=== PATIENT | female | born 1965 | race Caucasian/White ===

== ENCOUNTER 2017-04-29 11:30 | Inpatient (IN) | payer MEDICARE, MEDICAID ==
[~2017-04-29] VITALS: Ht 162.6 cm; Wt 47.3 kg
[~2017-04-29 11:30] MED LIST: Anusol Hc,Anuco25 MG R; BACTRIM DS 8001 TA1 PO; CIPRO500 MG PO; DOXYCYCLINE100 M2 PO; FLEXERIL10 MG PO; K-Dur 20MEQ20 MEQ PO; NKHM; PERCOCET 325 MG1 TA2 PO; PROTONIX TR40 MG PO; PROTONIX20 MG PO; PROZAC20 MG PO; PROZAC40 MG PO; VICODIN 5/500 505 MG PO; ZOFRAN ODT4 MG PO
[2017-04-29 11:35] VITALS: BP 155/87
[2017-04-29 12:25] LABS: BASO # 0.1 10*3/uL (0.0-0.1); BASO % 0.7 % (0.0-1.0); EOS % 0.3 % (1.0-4.0); HEMATOCRIT 46.8 % (37.0-47.0); HEMOGLOBIN 16.5 g/dl (12.0-16.0); LYMPH # 1.2 10*3/uL (1.3-4.4); MEAN CELL VOLUME 96.3 fl (81.0-99.0); MEAN CORPUSCULAR HGB CONC 35.3 g/dl (33.0-37.0); MEAN PLATELET VOLUME 9.6 fl (9.6-12.3); MONO # 0.8 10*3/uL (0.1-1.0); MONO % 5.1 % (3.0-9.0); NEUT % 85.4 % (47.0-73.0); PLATELET COUNT AUTOMATED 291 10*3/uL (130-400); RED BLOOD COUNT 4.86 10*6/uL (4.10-5.10); RED CELL DISTRI WIDTH 12.1 % (0-14.5); WHITE BLOOD COUNT 15.2 10*3/uL (4.8-10.8)
[2017-04-29 12:29] LABS: BILIRUBIN NEGATIVE (NEGATIVE); BLOOD NEGATIVE (NEGATIVE); CLARITY SL CLOUDY (CLEAR); COLOR YELLOW (YELLOW); GLUCOSE NEGATIVE (NEGATIVE); KETONE 1+ (NEGATIVE); LEUKO ESTERASE NEGATIVE (NEGATIVE); NITRITE NEGATIVE (NEGATIVE); UROBILINOGEN 0.2 E.U./dl (0.2-1.0)
[2017-04-29 12:34] LABS: ACT PARTIAL THROMBO TIME 20.7 SECONDS (20.8-31.5); INTERNATIONAL NORM RATIO 1.1 (2.0-3.5)
[2017-04-29 12:38] LABS: URINE AMPHETAMINES < 1000 (1000ng/ml); URINE BARBITURATES < 200 (200ng/ml); URINE BENZODIAZEPINES > 200 (200ng/ml); URINE CANNABINOIDS (THC) > 50 (50ng/ml); URINE COCAINE < 300 (300ng/ml); URINE METHADONE < 300 (300ng/ml); URINE OPIATES < 300 (300ng/ml)
[2017-04-29 12:39] LABS: URINE PHENCYCLIDINE < 25 (25ng/ml)
[2017-04-29 12:39] LABS: ALBUMIN 3.9 gm/dl (3.1-4.5); ALKALINE PHOSPHATASE 102 U/L (45-117); BUN 13 mg/dl (7-24); CHLORIDE 104 mmol/L (98-107); CREATININE 0.83 mg/dL (0.55-1.02); LIPASE 129 U/L (73-393); MAGNESIUM 1.7 mg/dL (1.5-2.1); POTASSIUM 3.6 mmol/L (3.5-5.1); SGOT/AST 36 IU/L (3-35); SGPT/ALT 29 U/L (12-78); SODIUM 142 mmol/L (136-145); TOTAL PROTEIN 7.8 gm/dL (6.4-8.2)
[2017-04-29 12:44] LABS: BACTERIA TRACE
[2017-04-29 13:10] VITALS: BP 158/79
--- NOTE | 2017-04-29 13:10 | NUR ---
A 51, admitted to , under the services of NATHAN Ambrose DO with a diagnosis of OPIATE DEPENDENCE. Chief complaint is SUBSTANCE ABUSE WITHDRAWAL. Patient arrived via wheel chair from ER. Monitor applied. Initial assessment completed. Vital signs taken and recorded. NATHAN AMBROSE DO notified of admission to the unit. Orders received. See assessment for past medical history, medications and allergies. Patient and/or family oriented to unit. [facility] visitation policy reviewed. Clothing/patient valuable form completed. JARROD BRADLEY
[2017-04-29] MEDS ORDERED: OLANZAPINE10 MG PO (13:38)
[2017-04-29] MEDS ORDERED: BUSPIRONE10 MG PO (13:38)
--- NOTE | 2017-04-29 13:39 | NUR ---
MED REC UPDATED BY CALLING PT PHARMACY.
--- NOTE | 2017-04-29 14:53 | NUR ---
PT C/O ANXIETY, CHILLS, TREMORS, ABD PAINS, NAUSEA AND RESTLESS LEGS. ZOFRAN, REQUIP, ROBAXIN, VISTARIL AND BENTYL GIVEN AT THIS TIME. WILL CONT TO MONITOR.
[2017-04-29 16:00] VITALS: BP 144/80
--- NOTE | 2017-04-29 16:28 | NUR ---
PRNs EFF AT THIS TIME. PT SAID SHE IS STILL HAVING SOME ABD PAIN BUT ITS RELIEVING. WILL CONT TO MONITOR. CALL LIGHT IN REACH.
--- NOTE | 2017-04-29 17:13 | NUR ---
PER DR JALEN BONNER TO START IV FOR IVF
--- NOTE | 2017-04-29 17:30 | NUR ---
NOTIFIED DR RAO THAT PT SCORED AN 11 ON SUICIDE RISK SCALE DO TO PREVIOUS ATTEMPT.
[2017-04-29 20:00] VITALS: BP 152/78
--- NOTE | 2017-04-29 21:32 | NUR ---
Patient reports the following symptoms of withdrawal: body aches, leg pain, nausea and cocaine cravings. Patient given scheduled/PRN medication to control withdrawal symptoms. Close observation will be maintained.
--- NOTE | 2017-04-29 22:30 | NUR ---
Patient resting quietly in bed with eyes closed. PRN medications effective. Will continue to monitor. Call light within reach.
--- NOTE | 2017-04-29 22:45 | NUR ---
Patient resting quietly in bed with eyes closed. PRN medications were effective. Will continue to monitor. Call light within reach.
[2017-04-30] VITALS: BP 110/73
--- NOTE | 2017-04-30 00:42 | NUR ---
24 HR chart check completed.
[2017-04-30 04:00] VITALS: BP 112/80
--- NOTE | 2017-04-30 05:26 | NUR ---
Patient reports the following symptoms of withdrawal: RESTLESS LEGS Patient given scheduled/PRN medication to control withdrawal symptoms. Close observation will be maintained.
[2017-04-30 06:49] LABS: BASO % 0.4 % (0.0-1.0); EOS % 0.1 % (1.0-4.0); HEMATOCRIT 42.3 % (37.0-47.0); HEMOGLOBIN 15.1 g/dl (12.0-16.0); LYMPH # 2.1 10*3/uL (1.3-4.4); LYMPH % 19.2 % (27.0-41.0); MEAN CELL VOLUME 98.6 fl (81.0-99.0); MEAN CORPUSCULAR HGB 35.2 pg (27.0-31.0); MEAN CORPUSCULAR HGB CONC 35.7 g/dl (33.0-37.0); MEAN PLATELET VOLUME 9.6 fl (9.6-12.3); MONO # 1.1 10*3/uL (0.1-1.0); MONO % 10.1 % (3.0-9.0); NEUT # 7.6 10*3/uL (2.3-7.9); NEUT % 69.9 % (47.0-73.0); PLATELET COUNT AUTOMATED 274 10*3/uL (130-400); RED BLOOD COUNT 4.29 10*6/uL (4.10-5.10); RED CELL DISTRI WIDTH 12.6 % (0-14.5); WHITE BLOOD COUNT 10.9 10*3/uL (4.8-10.8)
[2017-04-30 07:10] LABS: BUN 15 mg/dl (7-24); CHLORIDE 104 mmol/L (98-107); CHOLESTEROL 164 mg/dL (<200); POTASSIUM 3.9 mmol/L (3.5-5.1); SODIUM 140 mmol/L (136-145); TRIGLYCERIDES 105 mg/dl (<150); VLDL CHOLESTEROL 21 mg/dL (6-40)
[2017-04-30 07:17] LABS: FREE T4 0.84 ng/dl (0.76-1.46); HDL CHOLESTEROL 49 mg/dl (40-60); LDL CHOLESTEROL 94 mg/dL (9-159); THYROID STIM HORMONE (HS) 0.187 uIU/ml (0.358-4.75)
[2017-04-30 08:00] VITALS: BP 92/56
[2017-04-30 08:09] LABS: VITAMIN D, 25-HYDROXY 24.6 ng/mL (30-100)
[2017-04-30 17:12] VITALS: BP 96/61
[2017-04-30 20:20] VITALS: BP 97/58
[2017-05-01] VITALS: BP 86/56
--- NOTE | 2017-05-01 00:44 | NUR ---
24 HR chart check completed.
--- NOTE | 2017-05-01 07:53 | NUR ---
MEDICATED WITH PRN PO TYLENOL AND ZOFRAN FOR C/O A HEADACHE AND UPSET STOMACH. PATIENT LYING IN BED. NO SXS OF DISTRESS. WILL MONITOR.
[2017-05-01 08:00] VITALS: BP 109/75
--- NOTE | 2017-05-01 09:00 | NUR ---
PATIENT STATES EARLIER TYLENOL AND ZOFRAN WAS EFFECTIVE IN DECREASING PAIN AND NAUSEA. PAIN LEVEL DECREASED TO 4. WILL CONTINUE TO MONITOR.
--- NOTE | 2017-05-01 10:16 | NUR ---
MEDICATED WITH PRN ROBAXIN AND REQUIP FOR C/O RESTLESS LEGS AND MUSCLE ACHES. WILL MONITOR
--- NOTE | 2017-05-01 11:24 | NUR ---
Nutritional Support Services Note: Appetite is good for meals, eating 75-100% of meals and snacks. No reports of diarrhea noted. Regular diet as ordered. Withdrawal symptons noted. No nutrition intervention needed at this time. Kayla Isaac
--- NOTE | 2017-05-01 11:30 | NUR ---
ROBAXIN AND REQUIP EFFECTIVE PER PATIENT. PATIENT RESTING IN BED WITH LESS SXS OF RESTLESSNESS AND PAIN.
[2017-05-01 12:00] VITALS: BP 99/69
--- NOTE | 2017-05-01 13:10 | NUR ---
PT VERY RETSLESS AND ANXIOUS AT THIS TIME. MEDICATED WITH SCHEDULED BUSPAR AND PRN VISTARIL. WILL MONITOR FOR EFFECTIVENESS.
--- NOTE | 2017-05-01 14:09 | NUR ---
PATIENT STATES THAT EARLIER VISTARIL IS EFFECTIVE. CURRENTLY GETTING READY FOR SHOWER. SITTING ON SIDE OF BED. RESPIRATIONS EASY/REGULAR. CALL LIGHT IS IN REACH. WILL MONITOR.
--- NOTE | 2017-05-01 14:46 | NUR ---
PATIENT IS BACK IN ROOM AFTER SHOWER. SAYS SHE FEELS MUCH BETTER. NO COMPLAINTS AT THIS TIME. WILL MONITOR.
[2017-05-01 16:00] VITALS: BP 111/68
--- NOTE | 2017-05-01 17:06 | NUR ---
MEDICATED WITH PRN ROBAXIN AND TYLENOL ORDERD FOR C/O MUSCLE ACHES AND PAINS. PATIENT IS SITTING UP IN BED. NO FURTHER COMPLAINTS. WILL MONITOR.
[2017-05-01 20:00] VITALS: BP 94/67
[2017-05-02] VITALS: BP 114/88
[2017-05-02 08:00] VITALS: BP 133/79
--- NOTE | 2017-05-02 09:48 | NUR ---
PATIENT MEDICATED WITH PRN TYLENOL ORDERED FOR C/O BACK PAIN RATED A 7. PATIENT SITTING UP IN BED, WATCHING TV. RESPIRATIONS EASY/REGULAR. NO SXS OF DISTRESS. CALL LIGHT IN REACH. WILL MONITOR
[2017-05-02] MEDS ORDERED: ZOFRAN4 MG PO (10:09)
[2017-05-02] MEDS ORDERED: ATARAX,VISTARIL50 MG PO (10:09)
[2017-05-02] MEDS ORDERED: VITAMIN D31000 UNI1 PO (10:10)
--- NOTE | 2017-05-02 10:48 | NUR ---
PATIENT DISCHARGED. VERBALIZED UNDERSTANDING OF DISCHARGE INSTRUCTIONS.
== END 2017-05-02 10:48 | disposition home or self-care (01) | DRG 896 ==
LOC: ED 11:30 → EDHOLD 12:47 → 5E 12:47
PROVIDERS: Emergency Medicine; Internal Medicine; ADMIT Internal Medicine
DX: F11.23 Opioid dependence with withdrawal (principal); E43 Unspecified severe protein-calorie malnutrition; Z68.1 Body mass index [BMI] 19.9 or less, adult; D72.829 Elevated white blood cell count, unspecified; R73.9 Hyperglycemia, unspecified; R00.0 Tachycardia, unspecified; E86.0 Dehydration; F41.9 Anxiety disorder, unspecified; F12.10 Cannabis abuse, uncomplicated; K21.9 Gastro-esophageal reflux disease without esophagitis; F17.200 Nicotine dependence, unspecified, uncomplicated; Z88.6 Allergy status to analgesic agent; Z79.899 Other long term (current) drug therapy; Z87.440 Personal history of urinary (tract) infections; Z82.49 Family history of ischemic heart disease and other diseases of the circulatory system

== ENCOUNTER 2019-04-22 10:55 | Inpatient (IN) | payer MEDICARE, MEDICAID ==
[~2019-04-22] VITALS: Ht 162.5 cm; Wt 57.3 kg
--- NOTE | ~2019-04-22 | EKG ---
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
--- NOTE | ~2019-04-22 | O ---
[place], [place] OPERATIVE NOTE NAME: MARISEL KAM UNIT #: [id number] ROOM: 507 DOCTOR: FAVIO SONG MD BIRTHDATE: [birth year] DOS: GASTROENDOSCOPIC REPORT INDICATIONS: The patient is a 53-year-old who has presented with chief complaint of blood in stool, abdominal cramp has been admitted and underwent investigation. PAST MEDICAL HISTORY: Depression, anxiety, nicotine dependency and GERD. PAST SURGICAL HISTORY: None. SOCIAL HISTORY: Smoker, rare alcohol consumer, and marijuana user. FAMILY HISTORY: Noncontributory. ALLERGIES: IBUPROFEN AND AZITHROMYCIN. MEDICATIONS: List reviewed. PROCEDURE: Today's procedure part of investigation is colonoscopy. PREMEDICATION: Propofol. SCOPE: Olympus forward-viewing colonoscope 10L video. REPORT: After putting the patient in left lateral position and application of lubricant to the scope, the scope was introduced. Thereafter, under direct visualization, advanced through the length of colon without difficulty. Left-sided ischemic colitis extending from mid distal transverse colon to mid descending colon was identified, photographed and biopsied. Base of the cecum explored, appendiceal orifice identified. Biopsy from ischemic segment obtained. The patient extubated, tolerated the procedure well. IMPRESSION: Ischemic segment of colitis extending from proximal to the splenic flexure to mid descending colon, status post biopsy. PLAN AND DISCUSSION: We will stop ciprofloxacin from tomorrow. We are going to continue Flagyl 500 mg every 12 hours. During the course of her stay, we are going to keep her on clear liquid for the next 2 days. We are going to have basic metabolic panel and CBC on her and they are going to call me by Friday with the labs and records for further adjustment. Biopsies are pending, work in progress. [place], [place] OPERATIVE NOTE NAME: MARISEL KAM UNIT #: [id number] ROOM: 507 DOCTOR: FAVIO SONG MD BIRTHDATE: [birth year] FAVIO SONG MD CM:OPRECORD:OPERATIVE NOTE 23 20 FAVIO SONG MD 04/23/191921 interface
[~2019-04-22 10:55] MED LIST changes: +ATARAX,VISTARIL50 MG PO; +BUSPIRONE10 MG PO; +OLANZAPINE10 MG PO; +VITAMIN D31000 UNI1 PO; +ZOFRAN4 MG PO
[2019-04-22 11:00] VITALS: BP 128/77
[2019-04-22 11:40] LABS: BASO # 0.1 10*3/uL (0.0-0.1); BASO % 0.3 % (0.0-1.0); EOS # 0.2 10*3/uL (0.0-0.4); EOS % 1.4 % (1.0-4.0); HEMATOCRIT 40.3 % (37.0-47.0); HEMOGLOBIN 13.8 g/dl (12.0-16.0); LYMPH # 1.7 10*3/uL (1.3-4.4); MEAN CORPUSCULAR HGB 34.9 pg (27.0-31.0); MEAN CORPUSCULAR HGB CONC 34.2 g/dl (33.0-37.0); MEAN PLATELET VOLUME 9.7 fl (9.6-12.3); MONO # 0.9 10*3/uL (0.1-1.0); MONO % 6.1 % (3.0-9.0); NEUT # 12.3 10*3/uL (2.3-7.9); NEUT % 80.7 % (47.0-73.0); PLATELET COUNT AUTOMATED 258 10*3/uL (130-400); RED BLOOD COUNT 3.95 10*6/uL (4.10-5.10); RED CELL DISTRI WIDTH 12.8 % (0-14.5); WHITE BLOOD COUNT 15.2 10*3/uL (4.8-10.8)
[2019-04-22 11:55] LABS: ACT PARTIAL THROMBO TIME 25.2 SECONDS (20.0-32.1)
[2019-04-22 12:01] LABS: ALBUMIN 2.9 gm/dl (3.1-4.5); ALKALINE PHOSPHATASE 77 U/L (45-117); BUN 6 mg/dl (7-24); CHLORIDE 109 mmol/L (98-107); CREATININE 0.76 mg/dL (0.55-1.02); LIPASE 65 U/L (73-393); POTASSIUM 3.9 mmol/L (3.5-5.1); SGOT/AST 15 IU/L (3-35); SGPT/ALT 19 U/L (12-78); SODIUM 143 mmol/L (136-145); TOTAL PROTEIN 6.2 gm/dL (6.4-8.2)
[2019-04-22 12:05] LABS: BILIRUBIN NEGATIVE (NEGATIVE); BLOOD NEGATIVE (NEGATIVE); CLARITY CLEAR (CLEAR); COLOR YELLOW (YELLOW); GLUCOSE NEGATIVE (NEGATIVE); KETONE NEGATIVE (NEGATIVE); LEUKO ESTERASE TRACE (NEGATIVE); NITRITE NEGATIVE (NEGATIVE); PH 6.5 (5.0-9.0); SPECIFIC GRAVITY <= 1.005 (1.005-1.030); UROBILINOGEN 0.2 E.U./dl (0.2-1.0)
[2019-04-22 12:06] LABS: ETHYL ALCOHOL < 3.0 mg/dl (<3); TROPONIN I < 0.015 ng/ml (<0.045)
--- NOTE | 2019-04-22 12:10 | NUR ---
PT IS RESTING IN BED AND STATES THAT HER PAIN HAS DECREASED.
[2019-04-22 12:12] LABS: URINE AMPHETAMINES < 1000 (1000ng/ml); URINE BARBITURATES < 200 (200ng/ml); URINE BENZODIAZEPINES < 200 (200ng/ml); URINE CANNABINOIDS (THC) > 50 (50ng/ml); URINE COCAINE < 300 (300ng/ml); URINE METHADONE < 300 (300ng/ml); URINE OPIATES > 300 (300ng/ml)
[2019-04-22 12:13] LABS: URINE PHENCYCLIDINE < 25 (25ng/ml)
[2019-04-22 12:14] LABS: RBC 0-2 rbc/hpf (0-2)
[2019-04-22 13:26] VITALS: BP 135/78
--- NOTE | 2019-04-22 14:15 | NUR ---
A 53, admitted to 5E, under the services of CARLOS Cain DO with a diagnosis of ABD PAIN, RECTAL BLEEDING. Chief complaint is LLQ PAIN, DIARRHEA, NAUSEA. Patient arrived via ambulance from ER. Monitor applied. Initial assessment completed. Vital signs taken and recorded. CARLOS CAIN DO notified of admission to the unit. Orders received. See assessment for past medical history, medications and allergies. Patient and/or family oriented to unit. [facility] visitation policy reviewed. Clothing/patient valuable form completed. RODRÍGUEZ NICHOLE
--- NOTE | 2019-04-22 14:42 | NUR ---
CALL PLACED TO DR FLORES REGARDING PT'S COMPLAINTS OF 10/10 LLQ PAIN, PT STATES PAIN HAS NOT DECREASED SINCE ARRIVAL.
[2019-04-22 14:44] VITALS: BP 160/90
--- NOTE | 2019-04-22 14:51 | NUR ---
DR SONG MADE AWARE OF NEW CONSULT. HE WANTS RECORDS FROM PT'S VISIT ON FRIDAY-CT SCAN RESULTS AND TO CALL HIM BACK WITH RESULTS.
--- NOTE | 2019-04-22 15:00 | NUR ---
MEDICATED WITH ZOFRAN PER PRN ORDER FOR COMPLAINTS OF NAUSEA. WILL MONITOR FOR EFFECTIVENESS.
--- NOTE | 2019-04-22 15:35 | NUR ---
MEDICATED WITH NORCO PER PRN ORDER FOR COMPLAINTS OF LLQ PAIN. WILL MONITOR FOR EFFECTIVENESS.
--- NOTE | 2019-04-22 16:16 | NUR ---
SPOKE WITH DR SONG REGARDING PT'S VISIT TO [facility] ON FRIDAY AND PT'S CURRENT STATUS. ORDERS RECEIVED FOR COLO PREP AND COLO TOMORROW.
--- NOTE | 2019-04-22 17:43 | NUR ---
PT STATES EARLIER CHANCE HELPED. NOW RATES LLQ PAIN 03/10.
--- NOTE | 2019-04-22 18:07 | NUR ---
ATTEMPTED TO CALL [facility] TO VERIFY HOME MEDS, PT WAS UNSURE OF ALL MEDS AND DOSES. PHARMACY CLOSED AT THIS TIME. WILL CALL IN MORNING.
[2019-04-22 20:00] VITALS: BP 130/77
[2019-04-23] VITALS (9 sets, daily range): BP systolic 98–138; BP diastolic 62–85
[2019-04-23 06:15] LABS: BASO # 0.1 10*3/uL (0.0-0.1); BASO % 0.7 % (0.0-1.0); EOS # 0.4 10*3/uL (0.0-0.4); EOS % 3.8 % (1.0-4.0); HEMATOCRIT 35.9 % (37.0-47.0); HEMOGLOBIN 11.9 g/dl (12.0-16.0); LYMPH # 2.2 10*3/uL (1.3-4.4); LYMPH % 22.7 % (27.0-41.0); MEAN CELL VOLUME 102.6 fl (81.0-99.0); MEAN CORPUSCULAR HGB CONC 33.1 g/dl (33.0-37.0); MEAN PLATELET VOLUME 10.2 fl (9.6-12.3); MONO # 0.8 10*3/uL (0.1-1.0); MONO % 8.5 % (3.0-9.0); NEUT # 6.3 10*3/uL (2.3-7.9); PLATELET COUNT AUTOMATED 216 10*3/uL (130-400); RED CELL DISTRI WIDTH 12.8 % (0-14.5); WHITE BLOOD COUNT 9.8 10*3/uL (4.8-10.8)
[2019-04-23 06:43] LABS: BUN 3 mg/dl (7-24); CHLORIDE 112 mmol/L (98-107); CHOLESTEROL 111 mg/dL (<200); CREATININE 0.61 mg/dL (0.55-1.02); FREE T4 1.04 ng/dl (0.76-1.46); HDL CHOLESTEROL 47 mg/dl (40-60); LDL CHOLESTEROL 51 mg/dL (9-159); PHOSPHOROUS 2.6 mg/dL (2.5-4.9); POTASSIUM 3.6 mmol/L (3.5-5.1); SODIUM 144 mmol/L (136-145); TRIGLYCERIDES 64 mg/dl (<150); VLDL CHOLESTEROL 13 mg/dL (6-40)
[2019-04-23 06:50] LABS: THYROID STIM HORMONE (HS) 0.947 uIU/ml (0.358-4.75)
[2019-04-23 07:44] LABS: VITAMIN D, 25-HYDROXY 23.8 ng/mL (30-100)
--- NOTE | 2019-04-23 09:25 | NUR ---
PT COMPLAINING OF SWELLING IN HANDS FROM IV FLUIDS, ALSO ROCKING AT SIDE OF BED IN 10/10 LLQ PAIN. SPOKE WITH FLACO REGARDING PT'S CONDITION. ORDERS RECIEVED.
--- NOTE | 2019-04-23 09:33 | NUR ---
IV FLUIDS DECREASED TO 60ML/HR, AND IV MORPHINE GIVEN PER ORDER. WILL MONITOR FOR EFFECTIVENESS. PT ALSO REPORTED THAT SHE FELL ASLEEP LAST NIGHT AFTER SHE COMPLETED THE FIRST HALF OF COLO PREP, STATES THE NURSE DID NOT REINFORCE DRINKING THE REST OF THE PREP, AN ENTIRE BOTTLE OF POWERADE AND REMAINING MIRALAX WHICH WAS PRE-MIXED FOR PT IS SITTING IN WINDOW SILL UNTOUCHED. BEDSIDE COMMODE FULL OF BROWN THICK BM. EDUCATED PT THAT SHE WILL REQUIRE TAP WATER ENEMAS UNTIL CLEAR. FLACO INFORMED OF ISSUE.
--- NOTE | 2019-04-23 11:10 | NUR ---
TAP WATER ENEMA BEING GIVEN AT THIS TIME, PT COMPLAINING OF 10/10 LLQ PAIN, STATES EARLIER MORPHINE ONLY HELPED SOMEWHAT. SPOKE WITH FLACO REGARDING PT. ORDER RECEIVED FOR MORPHINE 1MG X1.
--- NOTE | 2019-04-23 11:39 | NUR ---
TAP WATER ENEMA COMPLETED. PT CLEAR AT THIS TIME. MORPHINE AND ZOFRAN GIVEN PER ORDER. WILL MONITOR FOR EFFECTIVENESS.
--- NOTE | 2019-04-23 12:09 | NUR ---
Digital Watch Assembler in to talk to patient. Patient states lives at HOME with ALONE. There are 2 steps in the home. Physician: NONE AT THIS TIME Pharmacy: [facility] IN [place] Home health services: NONE Patient's level of ADLs: INDEPENDENT Patient has working utilities: YES DME: NONE Follow-up physician's appointment after d/c: WILL BE MADE BY HOSPITALIST NURSE DIRECTOR ON DISCHARGE Does patient want to access PORTAL?: NO Discharge plan PT LIVES AT HOME ALONE AND IS INDEPENDENT IN HER CARE. PT STATES SHE WILL RETURN HOME WITH NO NEEDS ON DISCHARGE. WILL CONTINUE TO FOLLOW. PT STATES SHE WILL HAVE A RIDE HOME ON DISCHARGE.. AVRIL HENDRICKS
--- NOTE | 2019-04-23 13:08 | NUR ---
HINA received call from [employer] Senior Analyst, Darya ([phone]). who is partnered with the [facility] [place]. She called for an update on the patients status.-HINA Carbajal
[2019-04-23] MEDS ORDERED: HYDROXYZINE HCL25 MG PO (14:03)
[2019-04-23] MEDS ORDERED: AMITRIPTYLINE50 MG PO (14:06)
[2019-04-23] MEDS ORDERED: PRAZOSIN HCL1 MG PO (14:06)
--- NOTE | 2019-04-23 14:07 | NUR ---
CONTACTED [facility] TO VERIFY HOME MEDS. MED REC UPDATED. FLACO UPDATED.
--- NOTE | 2019-04-23 14:08 | NUR ---
PT OFF FLOOR FOR CXR.
--- NOTE | 2019-04-23 14:33 | NUR ---
PT OFF FLOOR FOR COLO AT THIS TIME.
--- NOTE | 2019-04-23 16:00 | NUR ---
PT REMAINS IN SURGERY AT THIS TIME.
--- NOTE | 2019-04-23 18:51 | NUR ---
MEDICATED WITH MORPHINE AND ZOFRAN FOR COMPLAINTS OF LLQ PAIN AND NAUSEA. WILL MONITOR FOR EFFECTIVENESS.
--- NOTE | 2019-04-23 20:35 | NUR ---
24 HOUR CHART CHECK DONE
[2019-04-24] VITALS: BP 113/62; BP 85/51
--- NOTE | 2019-04-24 06:24 | NUR ---
PT MEDICATED WITH MORPHINE 2MG IV FOR C/O 6/10 ABD PAIN. WILL MONITOR FOR RELIEF.
[2019-04-24 06:26] LABS: HEMATOCRIT 34.6 % (37.0-47.0); HEMOGLOBIN 11.8 g/dl (12.0-16.0); MEAN CELL VOLUME 100.9 fl (81.0-99.0); MEAN CORPUSCULAR HGB 34.4 pg (27.0-31.0); MEAN CORPUSCULAR HGB CONC 34.1 g/dl (33.0-37.0); MEAN PLATELET VOLUME 10.3 fl (9.6-12.3); PLATELET COUNT AUTOMATED 221 10*3/uL (130-400); RED BLOOD COUNT 3.43 10*6/uL (4.10-5.10); RED CELL DISTRI WIDTH 12.6 % (0-14.5); WHITE BLOOD COUNT 7.6 10*3/uL (4.8-10.8)
[2019-04-24 06:53] LABS: ALBUMIN 2.5 gm/dl (3.1-4.5); ALKALINE PHOSPHATASE 72 U/L (45-117); BUN 3 mg/dl (7-24); CHLORIDE 110 mmol/L (98-107); POTASSIUM 3.5 mmol/L (3.5-5.1); SGOT/AST 20 IU/L (3-35); SGPT/ALT 18 U/L (12-78); SODIUM 144 mmol/L (136-145); TOTAL PROTEIN 5.3 gm/dL (6.4-8.2)
[2019-04-24 07:29] LABS: ATYPICAL LYMPHS 1 % (0-0); PLATELET SUFFICIENCY NORMAL (NORMAL); TOTAL CELLS COUNTED 100 #CELLS
[2019-04-24 07:30] LABS: POLYCHROMASIA SLIGHT
[2019-04-24 08:00] VITALS: BP 118/72
--- NOTE | 2019-04-24 08:22 | NUR ---
NOTIFIED DR HERNANDEZ THAT PT WAS REQUESTING DIET CHANGE AND FLUIDS TO BE D/C'D. PT STATES SHE FEELS "PUFFY".
--- NOTE | 2019-04-24 08:28 | NUR ---
NOTIFIED DR SONG OF PT REQUESTING DIET INCREASE TO SOFT, ORDER RECIEVED.
[2019-04-24 12:00] VITALS: BP 132/80
[2019-04-24 16:00] VITALS: BP 138/83
--- NOTE | 2019-04-24 16:32 | NUR ---
PATIENT COMPLAINTS OF "CRAMPING" 6/10 PAIN. MEDICATED PER ORDER. CALL LIGHT WITHIN REACH. PATIENT RESTING IN BED. VERBALIZED RELIEF.
--- NOTE | 2019-04-24 19:35 | NUR ---
24 HOUR CHART CHECK DONE
[2019-04-24 20:00] VITALS: BP 134/96
[2019-04-25] VITALS: BP 118/82
[2019-04-25 06:37] LABS: HEMATOCRIT 36.5 % (37.0-47.0); HEMOGLOBIN 12.5 g/dl (12.0-16.0); MEAN CELL VOLUME 99.5 fl (81.0-99.0); MEAN CORPUSCULAR HGB 34.1 pg (27.0-31.0); MEAN CORPUSCULAR HGB CONC 34.2 g/dl (33.0-37.0); PLATELET COUNT AUTOMATED 246 10*3/uL (130-400); RED BLOOD COUNT 3.67 10*6/uL (4.10-5.10); RED CELL DISTRI WIDTH 12.6 % (0-14.5); WHITE BLOOD COUNT 7.6 10*3/uL (4.8-10.8)
[2019-04-25 07:10] LABS: ATYPICAL LYMPHS 1 % (0-0); PLATELET SUFFICIENCY NORMAL (NORMAL); POLYCHROMASIA SLIGHT; TOTAL CELLS COUNTED 100 #CELLS
[2019-04-25 07:22] LABS: BUN 4 mg/dl (7-24); CHLORIDE 108 mmol/L (98-107); CREATININE 0.69 mg/dL (0.55-1.02); POTASSIUM 3.6 mmol/L (3.5-5.1); SODIUM 141 mmol/L (136-145)
--- NOTE | 2019-04-25 07:27 | NUR ---
May convert patient to PO Flagyl if clinically feasible -- all criteria met for IV to PO conversion. Thanks, Bryan Yang, PharmD, [facility]
[2019-04-25 08:00] VITALS: BP 141/83
--- NOTE | 2019-04-25 08:24 | NUR ---
PATIENT C/O CRAMPING PAIN 02/08. MEDICATED PER ORDER. PATIENT SITTING IN BED EATING BREAKFAST. VERBALIZED RELIEF. CALL LIGHT WITHIN REACH. VOICES NO OTHER COMPLAINTS AT THIS TIME.
[2019-04-25 12:00] VITALS: BP 136/89
--- NOTE | 2019-04-25 13:13 | NUR ---
SPOKE WITH DR SONG REGARDING PLAN OF CARE. PT STATING SHE "WANTS TO GO HOME", PT TO F/U OUTPT INWITHIN [address] CHUNG AWARE.
[2019-04-25] MEDS ORDERED: VITAMIN D5000 UNI1 PO (13:21)
[2019-04-25] MEDS ORDERED: FLAGYL500 MG PO (13:21)
[2019-04-25] MEDS ORDERED: HYDROCODONE-AC1 EAC1 PO (13:21)
--- NOTE | 2019-04-25 13:30 | NUR ---
Hep Lock discontinued. Site asymptomatic. Pressure applied. Sterile dressing applied. DORI YANES RN
--- NOTE | 2019-04-25 13:57 | NUR ---
Discharge instructions reviewed with patient/family. Patient receptive and verbalizes understanding. Follow-up care arranged. Written instructions given to patient/family. LC HONEYCUTT
== END 2019-04-25 13:57 | disposition home or self-care (01) | DRG 394 ==
LOC: ED 10:55 → 5E 13:19 → EDHOLD 13:19 → 5E 13:40
PROVIDERS: Emergency Medicine; Family Medicine; Internal Medicine; Registered Nurse; ADMIT Internal Medicine
PROC: 0DBL8ZX Excision of Transverse Colon, Via Natural or Artificial Opening Endoscopic, Diagnostic (ICD-10-PCS; principal; 2019-04-23)
PROC: 0DBM8ZX Excision of Descending Colon, Via Natural or Artificial Opening Endoscopic, Diagnostic (ICD-10-PCS; principal; 2019-04-23)
DX: K55.9 Vascular disorder of intestine, unspecified (principal); E44.0 Moderate protein-calorie malnutrition; I10 Essential (primary) hypertension; D72.829 Elevated white blood cell count, unspecified; D75.89 Other specified diseases of blood and blood-forming organs; E87.8 Other disorders of electrolyte and fluid balance, not elsewhere classified; F32.9 Major depressive disorder, single episode, unspecified; J40 Bronchitis, not specified as acute or chronic; K21.9 Gastro-esophageal reflux disease without esophagitis; F41.9 Anxiety disorder, unspecified; E55.9 Vitamin D deficiency, unspecified; Z88.1 Allergy status to other antibiotic agents; Z88.6 Allergy status to analgesic agent; Z82.49 Family history of ischemic heart disease and other diseases of the circulatory system; Z82.5 Family history of asthma and other chronic lower respiratory diseases; Z83.79 Family history of other diseases of the digestive system; Z79.899 Other long term (current) drug therapy; Z68.21 Body mass index [BMI] 21.0-21.9, adult

== ENCOUNTER 2019-09-10 00:55 | Inpatient (IN) | payer MEDICARE, MEDICAID ==
[~2019-09-10] VITALS: Ht 162.5 cm; Wt 54.6 kg
[2019-09-10] VITALS (7 sets, daily range): BP systolic 117–172; BP diastolic 73–97
[~2019-09-10 00:55] MED LIST changes: +AMITRIPTYLINE50 MG PO; +FLAGYL500 MG PO; +HYDROCODONE-AC1 EAC1 PO; +HYDROXYZINE HCL25 MG PO; +PRAZOSIN HCL1 MG PO; +VITAMIN D5000 UNI1 PO
[2019-09-10 02:11] LABS: BILIRUBIN NEGATIVE (NEGATIVE); BLOOD NEGATIVE (NEGATIVE); CLARITY CLEAR (CLEAR); COLOR YELLOW (YELLOW); GLUCOSE NEGATIVE (NEGATIVE); KETONE 1+ (NEGATIVE); LEUKO ESTERASE NEGATIVE (NEGATIVE); NITRITE NEGATIVE (NEGATIVE); UROBILINOGEN 0.2 E.U./dl (0.2-1.0)
[2019-09-10 02:18] LABS: ALBUMIN 3.7 gm/dl (3.1-4.5); ALKALINE PHOSPHATASE 105 U/L (45-117); BUN 9 mg/dl (7-24); CHLORIDE 105 mmol/L (98-107); CREATININE 1.02 mg/dL (0.55-1.02); POTASSIUM 3.4 mmol/L (3.5-5.1); SGOT/AST 36 IU/L (3-35); SGPT/ALT 32 U/L (12-78); SODIUM 141 mmol/L (136-145); TOTAL PROTEIN 7.1 gm/dL (6.4-8.2)
[2019-09-10 02:24] LABS: URINE AMPHETAMINES < 1000 (1000ng/ml); URINE BARBITURATES < 200 (200ng/ml); URINE CANNABINOIDS (THC) > 50 (50ng/ml); URINE COCAINE < 300 (300ng/ml); URINE METHADONE < 300 (300ng/ml)
[2019-09-10 02:25] LABS: URINE BENZODIAZEPINES < 200 (200ng/ml); URINE OPIATES < 300 (300ng/ml)
[2019-09-10 02:27] LABS: BASO # 0.1 10*3/uL (0.0-0.1); BASO % 0.5 % (0.0-1.0); EOS # 0.1 10*3/uL (0.0-0.4); EOS % 0.5 % (1.0-4.0); HEMOGLOBIN 14.2 g/dl (12.0-16.0); LYMPH # 1.5 10*3/uL (1.3-4.4); LYMPH % 12.5 % (27.0-41.0); MEAN CELL VOLUME 98.3 fl (81.0-99.0); MEAN CORPUSCULAR HGB 34.1 pg (27.0-31.0); MEAN CORPUSCULAR HGB CONC 34.6 g/dl (33.0-37.0); MEAN PLATELET VOLUME 10.5 fl (9.6-12.3); MONO # 0.6 10*3/uL (0.1-1.0); MONO % 5.5 % (3.0-9.0); NEUT # 9.3 10*3/uL (2.3-7.9); NEUT % 79.7 % (47.0-73.0); PLATELET COUNT AUTOMATED 272 10*3/uL (130-400); RED BLOOD COUNT 4.17 10*6/uL (4.10-5.10); WHITE BLOOD COUNT 11.7 10*3/uL (4.8-10.8)
[2019-09-10 02:30] LABS: RBC 0-2 rbc/hpf (0-2); WBC 0-2 wbc/hpf (0-5)
[2019-09-10 02:40] LABS: URINE PHENCYCLIDINE < 25 (25ng/ml)
[2019-09-11] VITALS: BP 152/86
[2019-09-11 08:07] LABS: BASO # 0.1 10*3/uL (0.0-0.1); BASO % 0.5 % (0.0-1.0); EOS % 0.4 % (1.0-4.0); HEMATOCRIT 44.4 % (37.0-47.0); LYMPH # 2.4 10*3/uL (1.3-4.4); MEAN CELL VOLUME 99.6 fl (81.0-99.0); MEAN CORPUSCULAR HGB 33.6 pg (27.0-31.0); MEAN CORPUSCULAR HGB CONC 33.8 g/dl (33.0-37.0); MEAN PLATELET VOLUME 10.4 fl (9.6-12.3); MONO # 1.1 10*3/uL (0.1-1.0); MONO % 10.8 % (3.0-9.0); NEUT # 6.8 10*3/uL (2.3-7.9); PLATELET COUNT AUTOMATED 278 10*3/uL (130-400); RED BLOOD COUNT 4.46 10*6/uL (4.10-5.10); RED CELL DISTRI WIDTH 12.7 % (0-14.5); WHITE BLOOD COUNT 10.4 10*3/uL (4.8-10.8)
[2019-09-11 08:24] LABS: BUN 7 mg/dl (7-24); CHLORIDE 112 mmol/L (98-107); CREATININE 0.88 mg/dL (0.55-1.02); PHOSPHOROUS 2.5 mg/dL (2.5-4.9); POTASSIUM 3.3 mmol/L (3.5-5.1); SODIUM 147 mmol/L (136-145)
[2019-09-11 09:06] LABS: VITAMIN D, 25-HYDROXY 24.5 ng/mL (30-100)
[2019-09-11] MEDS ORDERED: FLAGYL500 MG PO (13:06)
[2019-09-11] MEDS ORDERED: CIPRO500 MG PO (13:06)
== END 2019-09-11 13:32 | disposition home or self-care (01) | DRG 393 ==
LOC: ED 00:55 → EDHOLD 06:06 → 5E 06:06
PROVIDERS: Emergency Medicine; Internal Medicine; ADMIT Internal Medicine
PROC: 0DBL8ZX Excision of Transverse Colon, Via Natural or Artificial Opening Endoscopic, Diagnostic (ICD-10-PCS; principal; 2019-09-10)
PROC: 0DB68ZX Excision of Stomach, Via Natural or Artificial Opening Endoscopic, Diagnostic (ICD-10-PCS; principal; 2019-09-10)
DX: K55.9 Vascular disorder of intestine, unspecified (principal); K29.71 Gastritis, unspecified, with bleeding; E87.2 Acidosis; F33.9 Major depressive disorder, recurrent, unspecified; K52.9 Noninfective gastroenteritis and colitis, unspecified; E87.6 Hypokalemia; R73.9 Hyperglycemia, unspecified; R82.4 Acetonuria; F12.10 Cannabis abuse, uncomplicated; K21.9 Gastro-esophageal reflux disease without esophagitis; F41.9 Anxiety disorder, unspecified; I10 Essential (primary) hypertension; F43.10 Post-traumatic stress disorder, unspecified; Z88.6 Allergy status to analgesic agent; Z88.1 Allergy status to other antibiotic agents; Z82.49 Family history of ischemic heart disease and other diseases of the circulatory system; Z79.899 Other long term (current) drug therapy

== ENCOUNTER → 2020-12-18 | Outpatient (CLI) | payer MEDICARE, MEDICAID | END | disposition home or self-care (01) | LOC: CT 13:56 | PROVIDERS: ATTEND Family Medicine | DX: R10.11 Right upper quadrant pain (principal); R11.2 Nausea with vomiting, unspecified; Z87.19 Personal history of other diseases of the digestive system ==

== ENCOUNTER 2021-09-25 01:42 | Emergency (ER) | payer MEDICARE, MEDICAID ==
[~2021-09-25] VITALS: Ht 160 cm; Wt 43.6 kg
[2021-09-25 01:46] VITALS: BP 201/102
[2021-09-25 02:06] LABS: BASO % 0.2 % (0.0-1.0); EOS % 0.1 % (1.0-4.0); HEMATOCRIT 44.5 % (37.0-47.0); LYMPH % 8.9 % (27.0-41.0); MEAN CELL VOLUME 95.5 fl (81.0-99.0); MEAN CORPUSCULAR HGB 33.9 pg (27.0-31.0); MEAN CORPUSCULAR HGB CONC 35.5 g/dl (33.0-37.0); MEAN PLATELET VOLUME 9.8 fl (9.6-12.3); MONO # 0.6 10*3/uL (0.1-1.0); MONO % 5.3 % (3.0-9.0); NEUT # 9.4 10*3/uL (2.3-7.9); PLATELET COUNT AUTOMATED 308 10*3/uL (130-400); RED BLOOD COUNT 4.66 10*6/uL (4.10-5.10); RED CELL DISTRI WIDTH 11.6 % (0-14.5); WHITE BLOOD COUNT 11.1 10*3/uL (4.8-10.8)
[2021-09-25 02:33] LABS: ALBUMIN 4.5 gm/dl (3.1-4.5); ALKALINE PHOSPHATASE 101 U/L (45-117); BUN 7 mg/dl (7-24); CHLORIDE 99 mmol/L (98-107); CREATININE 0.77 mg/dL (0.55-1.02); LIPASE 58 U/L (73-393); POTASSIUM 3.9 mmol/L (3.5-5.1); SGOT/AST 14 IU/L (3-35); SGPT/ALT 18 U/L (12-78); SODIUM 134 mmol/L (136-145); TOTAL PROTEIN 8.6 gm/dL (6.4-8.2)
[2021-09-25 02:39] LABS: BILIRUBIN Negative (Negative); BLOOD Trace-Lysed (Negative); CLARITY Turbid (Clear); COLOR Yellow (Yellow); GLUCOSE Negative (Negative); KETONE 3+ (Negative); LEUKO ESTERASE Negative (Negative); NITRITE Negative (Negative); PH 7.5 (4.5-8.0); SPECIFIC GRAVITY 1.015 (1.001-1.030); UROBILINOGEN 0.2 E.U./dl (0.0-1.0)
[2021-09-25 02:50] LABS: URINE AMPHETAMINES < 1000 (1000ng/ml); URINE BARBITURATES < 200 (200ng/ml); URINE BENZODIAZEPINES < 200 (200ng/ml); URINE CANNABINOIDS (THC) > 50 (50ng/ml); URINE COCAINE < 300 (300ng/ml); URINE METHADONE < 300 (300ng/ml); URINE OPIATES < 300 (300ng/ml); URINE PHENCYCLIDINE < 25 (25ng/ml)
[2021-09-25 02:58] LABS: BACTERIA TRACE; EPITHELIAL CELLS 0-2; RBC 0-2 rbc/hpf (0-2)
[2021-09-25] MEDS ORDERED: ZOFRAN4 MG PO (03:48)
== END 2021-09-25 05:40 | disposition home or self-care (01) ==
LOC: ED 01:42
PROVIDERS: Internal Medicine
DX: R11.2 Nausea with vomiting, unspecified (principal); R10.84 Generalized abdominal pain; R19.7 Diarrhea, unspecified; Z88.1 Allergy status to other antibiotic agents; Z88.8 Allergy status to other drugs, medicaments and biological substances; Z79.2 Long term (current) use of antibiotics; Z79.899 Other long term (current) drug therapy; Z90.89 Acquired absence of other organs; F17.200 Nicotine dependence, unspecified, uncomplicated

== ENCOUNTER 2022-01-24 18:15 | Emergency (ER) | payer MEDICARE, MEDICAID ==
[~2022-01-24] VITALS: Wt 46.7 kg
[2022-01-24 19:36] LABS: BASO % 0.2 % (0.0-1.0); HEMATOCRIT 44.2 % (37.0-47.0); LYMPH # 0.8 10*3/uL (1.3-4.4); LYMPH % 7.1 % (27.0-41.0); MEAN CELL VOLUME 93.2 fl (81.0-99.0); MEAN CORPUSCULAR HGB 33.1 pg (27.0-31.0); MEAN CORPUSCULAR HGB CONC 35.5 g/dl (33.0-37.0); MEAN PLATELET VOLUME 9.4 fl (9.6-12.3); MONO # 0.4 10*3/uL (0.1-1.0); MONO % 3.2 % (3.0-9.0); NEUT # 10.5 10*3/uL (2.3-7.9); NEUT % 89.3 % (47.0-73.0); PLATELET COUNT AUTOMATED 275 10*3/uL (130-400); RED BLOOD COUNT 4.74 10*6/uL (4.10-5.10); RED CELL DISTRI WIDTH 11.4 % (0-14.5); WHITE BLOOD COUNT 11.7 10*3/uL (4.8-10.8)
[2022-01-24 19:52] LABS: ALKALINE PHOSPHATASE 83 U/L (45-117); BUN 12 mg/dl (7-24); CHLORIDE 105 mmol/L (98-107); CREATININE 0.73 mg/dL (0.55-1.02); POTASSIUM 3.5 mmol/L (3.5-5.1); SGOT/AST 12 IU/L (3-35); SGPT/ALT 18 U/L (12-78); SODIUM 136 mmol/L (136-145); TOTAL PROTEIN 7.8 gm/dL (6.4-8.2)
[2022-01-24 20:51] LABS: BILIRUBIN Negative (Negative); BLOOD Negative (Negative); CLARITY Turbid (Clear); COLOR Yellow (Yellow); GLUCOSE Negative (Negative); KETONE 2+ (Negative); LEUKO ESTERASE Negative (Negative); NITRITE Negative (Negative); SPECIFIC GRAVITY 1.015 (1.001-1.030); UROBILINOGEN 0.2 E.U./dl (0.0-1.0)
[2022-01-24 21:04] LABS: BACTERIA 1+; EPITHELIAL CELLS 0-2; WBC 0-2 wbc/hpf (0-5)
[2022-01-24 21:10] VITALS: BP 165/92
[2022-01-24] MEDS ORDERED: ZOFRAN4 MG PO (22:02)
== END 2022-01-24 22:10 | disposition home or self-care (01) ==
LOC: ED 18:15
PROVIDERS: Nurse Practitioner Family
DX: A08.4 Viral intestinal infection, unspecified (principal); Z20.822 Contact with and (suspected) exposure to COVID-19; Z88.1 Allergy status to other antibiotic agents; Z88.6 Allergy status to analgesic agent; Z79.899 Other long term (current) drug therapy; Z90.89 Acquired absence of other organs; Z98.890 Other specified postprocedural states; F17.200 Nicotine dependence, unspecified, uncomplicated

== ENCOUNTER → 2022-03-06 | Outpatient (CLI) | payer MEDICARE, MEDICAID ==
[2022-03-06 08:45] LABS: ALKALINE PHOSPHATASE 80 U/L (45-117); BUN 7 mg/dl (7-24); CHLORIDE 109 mmol/L (98-107); CREATININE 0.85 mg/dL (0.55-1.02); POTASSIUM 3.9 mmol/L (3.5-5.1); SGOT/AST 21 IU/L (3-35); SGPT/ALT 18 U/L (12-78); SODIUM 144 mmol/L (136-145); TOTAL PROTEIN 6.6 gm/dL (6.4-8.2)
[2022-03-08 00:07] LABS: HEPATITIS C QNT HCV Not Detected IU/mL (.)
[2022-03-08 17:07] LABS: HEPATITIS C QUANTITATION HCV Not Detected IU/mL (.)
== END | disposition home or self-care (01) ==
LOC: LAB 08:11
PROVIDERS: Physical Therapist; ATTEND Family Medicine
DX: R89.4 Abnormal immunological findings in specimens from other organs, systems and tissues (principal); Z79.899 Other long term (current) drug therapy; R73.9 Hyperglycemia, unspecified; R63.4 Abnormal weight loss

== ENCOUNTER → 2022-03-28 | Outpatient (CLI) | payer MEDICARE, MEDICAID | END | disposition home or self-care (01) | LOC: NM 00:54 | PROVIDERS: ATTEND Surgery | DX: K52.9 Noninfective gastroenteritis and colitis, unspecified (principal) ==

== ENCOUNTER → 2022-04-15 | Day surgery (SDC) | payer MEDICARE, MEDICAID ==
[~2022-04-15] VITALS: Ht 162.5 cm; Wt 44.5 kg
[~2022-04-15] MED LIST changes: +CARAFATE1 G1 PO; +DICYCLOMINE HCL10 MG PO; +ONDANSETRON4 MG SL; +PROTONIX40 MG PO; +TRAZODONE150 MG PO; +VITAMIN D325 MCG PO
[2022-04-15 08:30] VITALS: BP 85/51
[2022-04-15 09:26] VITALS: BP 127/90
[2022-04-15 09:40] VITALS: BP 133/96
[2022-04-15 09:56] VITALS: BP 126/87
[2022-04-15 14:14] VITALS: BP 127/90
== END | disposition home or self-care (01) ==
LOC: SDC 04-12 10:15
PROVIDERS: ATTEND Surgery
DX: K52.9 Noninfective gastroenteritis and colitis, unspecified (principal); K29.50 Unspecified chronic gastritis without bleeding; K57.30 Diverticulosis of large intestine without perforation or abscess without bleeding; J45.909 Unspecified asthma, uncomplicated; K21.9 Gastro-esophageal reflux disease without esophagitis; F32.9 Major depressive disorder, single episode, unspecified; F43.10 Post-traumatic stress disorder, unspecified; F41.9 Anxiety disorder, unspecified; G43.909 Migraine, unspecified, not intractable, without status migrainosus; Z98.890 Other specified postprocedural states

== ENCOUNTER 2022-04-16 15:40 | Emergency (ER) | payer MEDICARE, MEDICAID ==
[~2022-04-16] VITALS: Ht 162.5 cm; Wt 44.5 kg
[~2022-04-16 15:40] MED LIST changes: -DICYCLOMINE HCL10 MG PO; -ONDANSETRON4 MG SL
[2022-04-16 15:59] VITALS: BP 141/98
[2022-04-16 16:42] LABS: BASO % 0.2 % (0.0-1.0); HEMATOCRIT 45.6 % (37.0-47.0); LYMPH # 1.3 10*3/uL (1.3-4.4); LYMPH % 10.9 % (27.0-41.0); MEAN CELL VOLUME 93.6 fl (81.0-99.0); MEAN CORPUSCULAR HGB 33.9 pg (27.0-31.0); MEAN CORPUSCULAR HGB CONC 36.2 g/dl (33.0-37.0); MEAN PLATELET VOLUME 10.2 fl (9.6-12.3); MONO # 1.2 10*3/uL (0.1-1.0); MONO % 9.6 % (3.0-9.0); NEUT # 9.6 10*3/uL (2.3-7.9); NEUT % 78.8 % (47.0-73.0); PLATELET COUNT AUTOMATED 270 10*3/uL (130-400); RED BLOOD COUNT 4.87 10*6/uL (4.10-5.10); RED CELL DISTRI WIDTH 11.9 % (0-14.5); WHITE BLOOD COUNT 12.2 10*3/uL (4.8-10.8)
[2022-04-16 16:48] LABS: ALKALINE PHOSPHATASE 92 U/L (45-117); BUN 7 mg/dl (7-24); CHLORIDE 101 mmol/L (98-107); CREATININE 0.57 mg/dL (0.55-1.02); LIPASE 72 U/L (73-393); POTASSIUM 3.1 mmol/L (3.5-5.1); SGOT/AST 23 IU/L (3-35); SGPT/ALT 26 U/L (12-78); SODIUM 134 mmol/L (136-145); TOTAL PROTEIN 8.3 gm/dL (6.4-8.2)
[2022-04-16] MEDS ORDERED: DICYCLOMINE HCL10 MG PO (19:05)
[2022-04-16] MEDS ORDERED: ONDANSETRON4 MG SL (19:05)
== END 2022-04-16 19:21 | disposition home or self-care (01) ==
LOC: ED 15:40
PROVIDERS: Physician Assistant
DX: R10.84 Generalized abdominal pain (principal); R11.0 Nausea; Z88.8 Allergy status to other drugs, medicaments and biological substances; Z88.1 Allergy status to other antibiotic agents; Z79.899 Other long term (current) drug therapy; Z90.89 Acquired absence of other organs; Z90.49 Acquired absence of other specified parts of digestive tract; Z98.890 Other specified postprocedural states; Z87.891 Personal history of nicotine dependence

== ENCOUNTER 2022-05-24 10:39 | Emergency (ER) | payer MEDICARE, MEDICAID ==
[~2022-05-24 10:39] MED LIST changes: +DICYCLOMINE HCL10 MG PO; +ONDANSETRON4 MG SL
[2022-05-24 10:45] VITALS: BP 137/96
[2022-05-24 11:38] LABS: BASO % 0.5 % (0.0-1.0); EOS # 0.1 10*3/uL (0.0-0.4); EOS % 1.1 % (1.0-4.0); HEMATOCRIT 50.8 % (37.0-47.0); LYMPH # 2.5 10*3/uL (1.3-4.4); LYMPH % 34.7 % (27.0-41.0); MEAN CELL VOLUME 98.1 fl (81.0-99.0); MEAN CORPUSCULAR HGB 34.2 pg (27.0-31.0); MEAN CORPUSCULAR HGB CONC 34.8 g/dl (33.0-37.0); MEAN PLATELET VOLUME 10.3 fl (9.6-12.3); MONO # 0.7 10*3/uL (0.1-1.0); MONO % 9.2 % (3.0-9.0); NEUT % 54.4 % (47.0-73.0); PLATELET COUNT AUTOMATED 140 10*3/uL (130-400); RED BLOOD COUNT 5.18 10*6/uL (4.10-5.10); RED CELL DISTRI WIDTH 11.9 % (0-14.5); WHITE BLOOD COUNT 7.3 10*3/uL (4.8-10.8)
[2022-05-24 11:48] LABS: ACT PARTIAL THROMBO TIME 25.8 SECONDS (20.0-32.1)
[2022-05-24 11:52] LABS: ALKALINE PHOSPHATASE 75 U/L (45-117); BUN 12 mg/dl (7-24); CHLORIDE 104 mmol/L (98-107); CREATININE 0.65 mg/dL (0.55-1.02); LIPASE 154 U/L (73-393); POTASSIUM 4.3 mmol/L (3.5-5.1); SGOT/AST 42 IU/L (3-35); SGPT/ALT 28 U/L (12-78); SODIUM 140 mmol/L (136-145); TOTAL PROTEIN 7.7 gm/dL (6.4-8.2)
[2022-05-24 13:46] LABS: BILIRUBIN Negative (Negative); BLOOD Negative (Negative); CLARITY Turbid (Clear); COLOR Yellow (Yellow); GLUCOSE Negative (Negative); KETONE Negative (Negative); LEUKO ESTERASE Negative (Negative); NITRITE Negative (Negative); UROBILINOGEN 0.2 E.U./dl (0.0-1.0)
[2022-05-24 14:07] LABS: BACTERIA 3+
[2022-05-24 14:08] LABS: WBC 0-2 wbc/hpf (0-5)
[2022-05-24] MEDS ORDERED: ONDANSETRON4 MG SL (14:23)
== END 2022-05-24 14:40 | disposition home or self-care (01) ==
LOC: ED 10:39
PROVIDERS: Emergency Medicine
DX: B34.9 Viral infection, unspecified (principal); Z20.822 Contact with and (suspected) exposure to COVID-19; R11.10 Vomiting, unspecified; R42 Dizziness and giddiness; F17.200 Nicotine dependence, unspecified, uncomplicated; Z88.8 Allergy status to other drugs, medicaments and biological substances; Z88.1 Allergy status to other antibiotic agents; Z79.899 Other long term (current) drug therapy; Z90.89 Acquired absence of other organs

== ENCOUNTER 2023-05-11 17:05 | Emergency (ER) | payer OTHER, MEDICAID ==
[~2023-05-11] VITALS: Ht 162.5 cm; Wt 45.4 kg
[2023-05-11 17:13] VITALS: BP 140/107
[2023-05-11 18:03] LABS: BILIRUBIN Negative (Negative); BLOOD Negative (Negative); CLARITY Clear (Clear); COLOR Dark Yellow (Yellow); GLUCOSE Negative (Negative); KETONE Negative (Negative); LEUKO ESTERASE Negative (Negative); NITRITE Negative (Negative); PH 5.5 (4.5-8.0); SPECIFIC GRAVITY 1.015 (1.001-1.030)
[2023-05-11 18:04] LABS: BASO # 0.1 10*3/uL (0.0-0.1); BASO % 0.9 % (0.0-1.0); EOS % 0.2 % (1.0-4.0); HEMATOCRIT 50.2 % (37.0-47.0); LYMPH # 1.6 10*3/uL (1.3-4.4); MEAN CELL VOLUME 95.1 fl (81.0-99.0); MEAN CORPUSCULAR HGB 32.8 pg (27.0-31.0); MEAN CORPUSCULAR HGB CONC 34.5 g/dl (33.0-37.0); MEAN PLATELET VOLUME 9.5 fl (9.6-12.3); MONO # 0.8 10*3/uL (0.1-1.0); MONO % 14.8 % (3.0-9.0); NEUT % 53.9 % (47.0-73.0); PLATELET COUNT AUTOMATED 241 10*3/uL (130-400); RED BLOOD COUNT 5.28 10*6/uL (4.10-5.10); RED CELL DISTRI WIDTH 11.9 % (0-14.5); WHITE BLOOD COUNT 5.5 10*3/uL (4.8-10.8)
[2023-05-11 18:16] LABS: ACT PARTIAL THROMBO TIME 28.9 SECONDS (20.0-32.1)
[2023-05-11 18:26] LABS: ALKALINE PHOSPHATASE 93 U/L (46-116); BUN 10 mg/dl (9-23); CHLORIDE 103 mmol/L (98-107); LIPASE 40 U/L (12-53); POTASSIUM 3.5 mmol/L (3.4-5.1); SGPT/ALT 16 U/L (10-49); TOTAL PROTEIN 7.3 gm/dL (6.0-8.0)
== END 2023-05-11 21:08 | disposition home or self-care (01) ==
LOC: ED 17:05
PROVIDERS: Internal Medicine
DX: B34.9 Viral infection, unspecified (principal); Z20.822 Contact with and (suspected) exposure to COVID-19; I10 Essential (primary) hypertension; F17.200 Nicotine dependence, unspecified, uncomplicated; Z88.8 Allergy status to other drugs, medicaments and biological substances; Z88.1 Allergy status to other antibiotic agents; Z79.899 Other long term (current) drug therapy; Z90.89 Acquired absence of other organs

== ENCOUNTER 2023-11-21 14:32 | Emergency (ER) | payer OTHER, MEDICAID ==
[~2023-11-21] VITALS: Ht 162.5 cm; Wt 45.4 kg
[2023-11-21 14:39] VITALS: BP 148/98
[2023-11-21] MEDS ORDERED: MORPHINE Sulfate 2 MG/ML SYR IV ONE (14:40)
[2023-11-21] MEDS ORDERED: IOHEXOL 300 MG/ML 100 ML VIAL IV ONE (14:40)
[2023-11-21] MEDS ORDERED: diphenhydrAMINE hydrochloride 50 MG/ML VIAL IV ONE (14:40)
[2023-11-21] MEDS ORDERED: Metoclopramide Hydrochloride 10 MG/2 ML AMP IV ONE (14:40)
[2023-11-21] MEDS ORDERED: SODIUM CHLORIDE 0.9% 1,000 ML IV ONE (14:40)
[2023-11-21] MEDS ORDERED: NEURONTIN100 MG PO (14:41)
[2023-11-21] MEDS ORDERED: MAGNESIUM200 MG PO (14:42)
[2023-11-21 14:54] LABS: BASO # 0.1 10*3/uL (0.0-0.1); BASO % 0.8 % (0.0-1.0); EOS # 0.1 10*3/uL (0.0-0.4); EOS % 1.6 % (1.0-4.0); HEMATOCRIT 44.5 % (37.0-47.0); LYMPH # 2.3 10*3/uL (1.3-4.4); LYMPH % 26.6 % (27.0-41.0); MEAN CELL VOLUME 98.2 fl (81.0-99.0); MEAN CORPUSCULAR HGB 32.7 pg (27.0-31.0); MEAN CORPUSCULAR HGB CONC 33.3 g/dl (33.0-37.0); MEAN PLATELET VOLUME 8.8 fl (9.6-12.3); MONO # 0.6 10*3/uL (0.1-1.0); MONO % 7.3 % (3.0-9.0); NEUT # 5.6 10*3/uL (2.3-7.9); NEUT % 63.6 % (47.0-73.0); PLATELET COUNT AUTOMATED 269 10*3/uL (130-400); RED BLOOD COUNT 4.53 10*6/uL (4.10-5.10); RED CELL DISTRI WIDTH 12.3 % (0-14.5); WHITE BLOOD COUNT 8.8 10*3/uL (4.8-10.8)
[2023-11-21 15:17] LABS: ALKALINE PHOSPHATASE 93 U/L (46-116); BUN 7 mg/dl (9-23); CHLORIDE 106 mmol/L (98-107); LIPASE 32 U/L (12-53); POTASSIUM 3.9 mmol/L (3.4-5.1); SGPT/ALT 12 U/L (5-49); TOTAL PROTEIN 7.2 gm/dL (6.0-8.0)
[2023-11-21 16:44] LABS: BILIRUBIN Negative (Negative); BLOOD Negative (Negative); CLARITY Clear (Clear); COLOR Yellow (Yellow); GLUCOSE Negative (Negative); KETONE Negative (Negative); LEUKO ESTERASE 1+ (Negative); NITRITE Negative (Negative); PH 7.5 (4.5-8.0); SPECIFIC GRAVITY 1.025 (1.001-1.030); UROBILINOGEN 0.2 E.U./dl (0.0-1.0)
[2023-11-21 16:54] LABS: BACTERIA 2+; EPITHELIAL CELLS 21-30; WBC 21-30 wbc/hpf (0-5)
[2023-11-21] MEDS ORDERED: Ceftriaxone Sodium 1 GM/10 ML SYR IV ONE (17:00)
[2023-11-21] MEDS ORDERED: SEPTDS PO (17:07)
[2023-11-21] MEDS ORDERED: COLACE 2-IN-11 EACH PO (17:07)
[2023-11-21] MEDS ORDERED: MELOXICAM15 MG PO (17:07)
== END 2023-11-21 17:58 | disposition home or self-care (01) ==
LOC: ED 14:32
PROVIDERS: Emergency Medicine
DX: K56.7 Ileus, unspecified (principal); N39.0 Urinary tract infection, site not specified; K21.9 Gastro-esophageal reflux disease without esophagitis; R11.2 Nausea with vomiting, unspecified; F32.A Depression, unspecified; F41.9 Anxiety disorder, unspecified; J45.909 Unspecified asthma, uncomplicated; G43.909 Migraine, unspecified, not intractable, without status migrainosus; F11.20 Opioid dependence, uncomplicated; F12.90 Cannabis use, unspecified, uncomplicated; F17.200 Nicotine dependence, unspecified, uncomplicated; Z88.8 Allergy status to other drugs, medicaments and biological substances; Z88.1 Allergy status to other antibiotic agents; Z88.6 Allergy status to analgesic agent; Z98.890 Other specified postprocedural states; Z90.89 Acquired absence of other organs

== ENCOUNTER 2023-11-26 22:45 | Emergency (ER) | payer OTHER, MEDICAID ==
[~2023-11-26] VITALS: Ht 162.5 cm; Wt 45.4 kg
[~2023-11-26 22:45] MED LIST changes: +COLACE 2-IN-11 EACH PO; +MAGNESIUM200 MG PO; +MELOXICAM15 MG PO; +NEURONTIN100 MG PO; +SEPTDS PO
[2023-11-26] MEDS ORDERED: Dexamethasone Sodium Phospha 20 MG/5 ML VIAL IM ONE (22:50)
[2023-11-26] MEDS ORDERED: diphenhydrAMINE hydrochloride 50 MG/ML VIAL IM ONE (22:50)
[2023-11-26] MEDS ORDERED: diphenhydrAMINE hydrochloride 50 MG/ML VIAL IV ONE (23:00)
[2023-11-26] MEDS ORDERED: Dexamethasone Sodium Phospha 20 MG/5 ML VIAL IV ONE (23:00)
[2023-11-26 23:01] LABS: BASO # 0.1 10*3/uL (0.0-0.1); EOS # 0.3 10*3/uL (0.0-0.4); EOS % 3.6 % (1.0-4.0); HEMATOCRIT 39.7 % (37.0-47.0); LYMPH # 4.4 10*3/uL (1.3-4.4); LYMPH % 46.2 % (27.0-41.0); MEAN CELL VOLUME 97.8 fl (81.0-99.0); MEAN CORPUSCULAR HGB 33.3 pg (27.0-31.0); MONO % 10.5 % (3.0-9.0); NEUT # 3.6 10*3/uL (2.3-7.9); NEUT % 38.5 % (47.0-73.0); PLATELET COUNT AUTOMATED 278 10*3/uL (130-400); RED BLOOD COUNT 4.06 10*6/uL (4.10-5.10); RED CELL DISTRI WIDTH 12.3 % (0-14.5); WHITE BLOOD COUNT 9.4 10*3/uL (4.8-10.8)
[2023-11-26 23:46] LABS: ALKALINE PHOSPHATASE 96 U/L (46-116); BUN 15 mg/dl (9-23); CHLORIDE 103 mmol/L (98-107); LIPASE 65 U/L (12-53); POTASSIUM 4.2 mmol/L (3.4-5.1); SGPT/ALT 10 U/L (5-49); TOTAL PROTEIN 6.6 gm/dL (6.0-8.0)
[2023-11-27] MEDS ORDERED: Ceftriaxone Sodium 1 GM/10 ML SYR IV ONE (00:05)
[2023-11-27 00:10] VITALS: BP 118/81
[2023-11-27] MEDS ORDERED: MACROBID100 M1 PO (00:37)
== END 2023-11-27 00:53 | disposition home or self-care (01) ==
LOC: ED 22:45
PROVIDERS: Internal Medicine
DX: R10.9 Unspecified abdominal pain (principal); T36.8X5A Adverse effect of other systemic antibiotics, initial encounter; R11.2 Nausea with vomiting, unspecified; F17.200 Nicotine dependence, unspecified, uncomplicated; Z88.8 Allergy status to other drugs, medicaments and biological substances; Z88.2 Allergy status to sulfonamides; Z79.899 Other long term (current) drug therapy; Z79.2 Long term (current) use of antibiotics; Z90.89 Acquired absence of other organs; Y92.89 Other specified places as the place of occurrence of the external cause

== ENCOUNTER 2024-02-08 23:22 | Emergency (ER) | payer OTHER, MEDICAID ==
[~2024-02-08] VITALS: Ht 162.5 cm; Wt 45.4 kg
[~2024-02-08 23:22] MED LIST changes: +MACROBID100 M1 PO
[2024-02-08 23:29] VITALS: BP 100/60
[2024-02-08] MEDS ORDERED: Amoxicillin/Clavulanate Pota 875 MG TAB PO ONE (23:40)
[2024-02-08] MEDS ORDERED: AMOX-CLAV 875-1 EACH PO (23:40)
[2024-02-08] MEDS ORDERED: Tdap Vaccine 0.5 ML SYR (Adult Vaccine) IM ONE (23:40)
== END 2024-02-09 00:08 | disposition home or self-care (01) ==
LOC: ED 23:22
DX: S71.131A Puncture wound without foreign body, right thigh, initial encounter (principal); J45.909 Unspecified asthma, uncomplicated; F32.A Depression, unspecified; K21.9 Gastro-esophageal reflux disease without esophagitis; F41.9 Anxiety disorder, unspecified; G43.909 Migraine, unspecified, not intractable, without status migrainosus; F12.90 Cannabis use, unspecified, uncomplicated; F17.200 Nicotine dependence, unspecified, uncomplicated; F11.20 Opioid dependence, uncomplicated; Z88.8 Allergy status to other drugs, medicaments and biological substances; Z88.6 Allergy status to analgesic agent; Z88.2 Allergy status to sulfonamides; Z88.1 Allergy status to other antibiotic agents; Z98.890 Other specified postprocedural states; Z90.89 Acquired absence of other organs; W55.01XA Bitten by cat, initial encounter; Y93.89 Activity, other specified; Y92.009 Unspecified place in unspecified non-institutional (private) residence as the place of occurrence of the external cause; Y99.8 Other external cause status

== ENCOUNTER 2024-07-15 15:17 | Emergency (ER) | payer OTHER, MEDICAID ==
[~2024-07-15] VITALS: Ht 162.5 cm; Wt 44.0 kg
[~2024-07-15 15:17] MED LIST changes: +AMOX-CLAV 875-1 EACH PO; +LEVOFLOXACIN500 MG PO; +PEPCID20 MG PO; +PREDNISONE10 MG PO
[2024-07-15 15:44] VITALS: BP 157/94
[2024-07-15] MEDS ORDERED: MORPHINE Sulfate 2 MG/ML SYR IV ONE ×2 (16:00→17:30)
[2024-07-15] MEDS ORDERED: SODIUM CHLORIDE 0.9% 1,000 ML IV ONE (16:00)
[2024-07-15] MEDS ORDERED: Ondansetron Hydrochloride 4 MG/2 ML VIAL IV ONE (16:00)
[2024-07-15] MEDS ORDERED: IOHEXOL 300 MG/ML 100 ML VIAL IV ONE (16:05)
[2024-07-15 16:11] LABS: BASO # 0.1 10*3/uL (0.0-0.1); BASO % 0.9 % (0.0-1.0); EOS # 0.3 10*3/uL (0.0-0.4); HEMATOCRIT 43.5 % (37.0-47.0); MEAN CELL VOLUME 98.4 fl (81.0-99.0); MEAN CORPUSCULAR HGB 33.5 pg (27.0-31.0); MEAN PLATELET VOLUME 9.3 fl (9.6-12.3); MONO # 0.8 10*3/uL (0.1-1.0); MONO % 9.7 % (3.0-9.0); NEUT # 4.3 10*3/uL (2.3-7.9); NEUT % 50.3 % (47.0-73.0); PLATELET COUNT AUTOMATED 256 10*3/uL (130-400); RED BLOOD COUNT 4.42 10*6/uL (4.10-5.10); RED CELL DISTRI WIDTH 11.9 % (0-14.5); WHITE BLOOD COUNT 8.5 10*3/uL (4.8-10.8)
[2024-07-15 16:33] LABS: ALKALINE PHOSPHATASE 96 U/L (46-116); BUN 10 mg/dl (9-23); CHLORIDE 107 mmol/L (98-107); LIPASE 51 U/L (12-53); POTASSIUM 4.5 mmol/L (3.4-5.1); SGPT/ALT 9 U/L (5-49)
[2024-07-15 17:34] LABS: BILIRUBIN Negative (Negative); BLOOD Negative (Negative); CLARITY Clear (Clear); COLOR Yellow (Yellow); GLUCOSE Negative (Negative); KETONE Negative (Negative); LEUKO ESTERASE Negative (Negative); NITRITE Negative (Negative); SPECIFIC GRAVITY 1.015 (1.001-1.030); UROBILINOGEN 0.2 E.U./dl (0.0-1.0)
== END 2024-07-15 18:55 | disposition home or self-care (01) ==
LOC: ED 15:17
PROVIDERS: Nurse Practitioner Family
DX: K31.84 Gastroparesis (principal); R11.2 Nausea with vomiting, unspecified; F32.A Depression, unspecified; K21.9 Gastro-esophageal reflux disease without esophagitis; F41.9 Anxiety disorder, unspecified; G43.909 Migraine, unspecified, not intractable, without status migrainosus; F12.90 Cannabis use, unspecified, uncomplicated; F17.200 Nicotine dependence, unspecified, uncomplicated; F15.90 Other stimulant use, unspecified, uncomplicated; Z88.8 Allergy status to other drugs, medicaments and biological substances; Z88.2 Allergy status to sulfonamides; Z88.6 Allergy status to analgesic agent; Z88.1 Allergy status to other antibiotic agents; J44.9 Chronic obstructive pulmonary disease, unspecified; Z90.89 Acquired absence of other organs; Z98.890 Other specified postprocedural states

== ENCOUNTER 2025-01-20 07:16 | Emergency (ER) | payer OTHER, MEDICAID ==
[~2025-01-20] VITALS: Wt 48.1 kg
[2025-01-20] MEDS ORDERED: IOHEXOL 300 MG/ML 100 ML VIAL IV ONE (07:30)
[2025-01-20] MEDS ORDERED: diphenhydrAMINE hydrochloride 50 MG/ML VIAL IV ONE (07:30)
[2025-01-20] MEDS ORDERED: SODIUM CHLORIDE 0.9% 1,000 ML IV ONE (07:30)
[2025-01-20] MEDS ORDERED: Metoclopramide Hydrochloride 10 MG/2 ML VIAL IV ONE (07:30)
[2025-01-20 07:55] LABS: BASO % 0.2 % (0.0-1.0); EOS # 0.1 10*3/uL (0.0-0.4); EOS % 0.4 % (1.0-4.0); HEMATOCRIT 43.8 % (37.0-47.0); MEAN CELL VOLUME 99.8 fl (81.0-99.0); MEAN CORPUSCULAR HGB 33.3 pg (27.0-31.0); MEAN CORPUSCULAR HGB CONC 33.3 g/dl (33.0-37.0); MEAN PLATELET VOLUME 9.2 fl (9.6-12.3); MONO # 0.7 10*3/uL (0.1-1.0); MONO % 4.7 % (3.0-9.0); NEUT # 13.8 10*3/uL (2.3-7.9); NEUT % 86.8 % (47.0-73.0); PLATELET COUNT AUTOMATED 261 10*3/uL (130-400); RED BLOOD COUNT 4.39 10*6/uL (4.10-5.10); RED CELL DISTRI WIDTH 11.9 % (0-14.5); WHITE BLOOD COUNT 15.9 10*3/uL (4.8-10.8)
[2025-01-20 08:07] LABS: BILIRUBIN Negative (Negative); BLOOD Negative (Negative); CLARITY Cloudy (Clear); COLOR Yellow (Yellow); GLUCOSE Negative (Negative); KETONE Trace (Negative); LEUKO ESTERASE Negative (Negative); NITRITE Negative (Negative); UROBILINOGEN 0.2 E.U./dl (0.0-1.0)
[2025-01-20 08:13] LABS: URINE AMPHETAMINES Negative (1000ng/ml); URINE BARBITURATES Negative (200ng/ml); URINE BENZODIAZEPINES Negative (200ng/ml); URINE CANNABINOIDS (THC) Positive (50ng/ml); URINE COCAINE Positive (300ng/ml); URINE METHADONE Negative (300ng/ml); URINE OPIATES Negative (300ng/ml); URINE PHENCYCLIDINE Negative (25ng/ml)
[2025-01-20 08:16] LABS: ALKALINE PHOSPHATASE 94 U/L (46-116); BUN 11 mg/dl (9-23); CHLORIDE 103 mmol/L (98-107); LIPASE 26 U/L (12-53); POTASSIUM 3.7 mmol/L (3.4-5.1); SGPT/ALT 17 U/L (5-49)
[2025-01-20 08:17] LABS: ETHYL ALCOHOL < 3.0 mg/dl (<3)
[2025-01-20 08:23] LABS: BACTERIA 1+; EPITHELIAL CELLS 0-2; WBC 0-2 wbc/hpf (0-5)
[2025-01-20 09:31] VITALS: BP 143/86
[2025-01-20] MEDS ORDERED: CIPRO500 MG PO (09:51)
[2025-01-20] MEDS ORDERED: METRONIDAZOLE500 M1 PO (09:51)
== END 2025-01-20 10:39 | disposition home or self-care (01) ==
LOC: ED 07:16
PROVIDERS: Internal Medicine
DX: K52.9 Noninfective gastroenteritis and colitis, unspecified (principal); F19.10 Other psychoactive substance abuse, uncomplicated; R11.2 Nausea with vomiting, unspecified; F17.200 Nicotine dependence, unspecified, uncomplicated; Z88.8 Allergy status to other drugs, medicaments and biological substances; Z88.2 Allergy status to sulfonamides; Z79.899 Other long term (current) drug therapy; Z90.89 Acquired absence of other organs